=== PATIENT | male | born 1955 | race African-American/Black ===

== ENCOUNTER 2017-02-02 22:00 | Emergency (ER) | payer OTHER ==
[~2017-02-02] VITALS: Ht 177.8 cm; Wt 95.3 kg
[2017-02-02] MEDS ORDERED: AMLODIPINE BESY10 MG ORAL (22:54)
[2017-02-02 22:55] VITALS: BP 146/84
--- NOTE | 2017-02-02 23:12 | Emergency Room Report ---
History of Present Illness General Chief Complaint: Earache Source: Patient Present Illness HPI 61-year-old male no significant past medical history presenting with one and half weeks of difficulty hearing from right ear. Patient states his last visit and has been unable to take it out. Slight discomfort but denies any pain. Denies any headache nausea vomiting blurry vision fever chills Denies any dizziness/vertigo Allergies: Coded Allergies: No Known Allergies (Unverified , 02/02/17) Patient History Past Medical History: see triage record Past Surgical History: none Pertinent Family History: none Reviewed Nursing Documentation: PMH: Agreed, PSxH: Agreed Nursing Documentation-PMH Hx Hypertension: Yes Review of Systems All Other Systems: negative except mentioned in HPI Physical Exam Vital Signs Date Time Temp Pulse Resp B/P (MAP) Pulse Ox O2 Delivery O2 Flow Rate FiO2 02/02/17 22:51 98.1 67 18 146/84 100 Room Air Sp02 EP Interpretation: reviewed, normal General Appearance: normal inspection, well appearing, no apparent distress, alert, GCS 15, non-toxic Head: normocephalic, atraumatic Eyes: bilateral eye normal inspection, bilateral eye PERRL, bilateral eye EOMI ENT: normal pharynx, normal voice, moist mucus membranes, other - Left TM normal, right middle ear canal with impacted cerumen, no tenderness palpation of the external ear, no pain with tugging of right ear Neck: normal inspection, full range of motion, supple Respiratory: normal inspection, lungs clear, normal breath sounds, no respiratory distress, no retraction, no wheezing, speaking full sentences, chest symmetrical Cardiovascular #1: normal inspection, regular rate, rhythm, no edema, normal capillary refill Cardiovascular #2: 2+ radial (R), 2+ radial (L) Gastrointestinal: normal inspection, non tender, soft, non-distended, no guarding Genitourinary: no CVA tenderness Musculoskeletal: normal inspection, back normal, normal range of motion, non- tender Neurologic: normal inspection, alert, oriented x3, responsive, motor strength/ tone normal, sensory intact, normal gait, speech normal Psychiatric: normal inspection, judgement/insight normal, memory normal Skin: normal inspection, normal color, no rash, warm/dry, well hydrated, normal turgor Procedures Additional Procedure Procedure Narrative Right ear serum and removal performed Used about 20 mL of normal saline, irrigated with syringe Manual removal with curet No complications no bleeding Kitchen tolerated procedure well Medical Decision Making Diagnostic Impression: Primary Impression: Right ear impacted cerumen ER Course 61-year-old male with infected right ear DDX: Right ear cerumen impaction Plan: Right ear irrigation ER course: Patient has remained stable during ED stay. Sandman removed with irrigation and manual removal with curet patient tolerated procedure Disposition: Patient is to be discharged to home. Patient instructed to follow up with ENT in one week Strict return precautions discussed with patient such as fever, chills, worsening/severe pain, nausea, vomiting, which may indicate severe illness. Patient verbalizes understanding and agrees with plan. Please note that this Emergency Department Report was dictated using [employer] qa technology software, occasionally this can lead to erroneous entry secondary to interpretation by the dictation equipment Last Vital Signs Date Time Temp Pulse Resp B/P (MAP) Pulse Ox O2 Delivery O2 Flow Rate FiO2 02/02/17 22:55 98.1 67 18 146/84 100 Room Air Disposition: HOME, SELF-CARE Condition: Improved Ella Simpson M.D. Feb 02, 2017 23:12
[2017-02-02 23:44] VITALS: BP 146/84
== END 2017-02-02 23:44 | disposition home or self-care (01) ==
LOC: EMR 23:00
DX: H61.21 Impacted cerumen, right ear (principal); I10 Essential (primary) hypertension
CPT/HCPCS: 69210; 99283